=== PATIENT | female | born 1935 | race Caucasian/White ===

== ENCOUNTER 2018-05-05 10:04 | Emergency (ER) | payer MEDICARE, OTHER ==
[2018-05-05 11:35] VITALS: BP 167/67
--- NOTE | 2018-05-05 12:38 | UC ---
Respiratory Complaint HPI - HPI Summary HPI Summary: 4 DAYS OF PRODUCTIVE COUGH, NASAL CONGESTION, HOARSENESS, SINUS PRESSURE AND FATIGUE. NO FEVER. IS HERE VISITING FROM [place]. - History of Current Complaint Chief Complaint: UCGeneralIllness Stated Complaint: SINUS COMPLAINT,COUGH Time Seen by Provider: 05/05/18 11:34 Hx Obtained From: Patient Onset/Duration: Gradual Onset, Lasting Days, Still Present Timing: Constant Severity Initially: Moderate Severity Currently: Moderate Pain Intensity: 0 Pain Scale Used: 0-10 Numeric Character: Cough: Productive Associated Signs And Symptoms: Positive: URI, Nasal Congestion, Hoarseness - Allergies/Home Medications Allergies/Adverse Reactions: Allergies Allergy/AdvReac Type Severity Reaction Status Date / Time amlodipine Allergy See Comment Verified 05/05/18 11:14 SSRI &SSNI Allergy Intermediate See Comment Uncoded 10/18/15 19:08 Home Medications: Home Medications traZODone TAB* [Desyrel TAB*] 75 mg PO BEDTIME 05/05/18 [History Confirmed 05/05] PMH/Surg Hx/FS Hx/Imm Hx - Additional Past Medical History Additional PMH: ARTHRITIS Cardiovascular History: Hypertension Respiratory History: Asthma Cancer History: Breast Cancer - Surgical History Surgical History: Yes Surgery Procedure, Year, and Place: Tonsillectomy, Left underarm lymph node dissection, D&C - Family History Known Family History: Positive: Hypertension - Social History Alcohol Use: Occasionally Substance Use Type: None Smoking Status (MU): Never Smoked Tobacco - Immunization History Most Recent Tetanus Shot: UNK Review of Systems Constitutional: Negative ENT: Sore Throat, Nasal Discharge Respiratory: Cough Cardiovascular: Negative Gastrointestinal: Negative All Other Systems Reviewed And Are Negative: Yes Physical Exam Triage Information Reviewed: Yes Appearance: Well-Appearing, No Pain Distress, Well-Nourished Vital Signs: Initial Vital Signs Temp 98.2 F 05/05/18 11:31 Pulse 68 05/05/18 11:31 Resp 18 05/05/18 11:31 BP 167/67 05/05/18 11:31 Pulse Ox 100 05/05/18 11:31 Vital Signs Reviewed: Yes Eyes: Positive: Conjunctiva Clear ENT: Positive: Hearing grossly normal, Pharynx normal, TMs normal, Hoarse voice Neck: Positive: Supple, Nontender, No Lymphadenopathy Respiratory Exam: Normal Cardiovascular Exam: Normal Abdomen Description: Positive: Soft Musculoskeletal: Positive: No Edema Neurological: Positive: Alert Psychological: Positive: Age Appropriate Behavior Skin: Negative: rashes UC Diagnostic Evaluation - Laboratory O2 Sat by Pulse Oximetry: 100 Respiratory Course/Dx - Differential Dx/Diagnosis Provider Diagnoses: ACUTE URI Discharge - Sign-Out/Discharge Documenting (check all that apply): Discharge/Admit/Transfer - Discharge Plan Condition: Stable Disposition: HOME Prescriptions: Azithromycin 500 mg PO DAILY #5 tab Patient Education Materials: Upper Respiratory Infection (ED) Referrals: No Primary Care Phys,NOPCP [Primary Care Provider] - Additional Instructions: YOUR SYMPTOMS MAY BE VIRALLY MEDIATED BUT GIVEN THE FACT THAT YOU ARE TRAVELLING WE WILL COVER YOU WITH ANTIBIOTICS. IF YOU START THE MEDICINE BE SURE TO TAKE IT FOR THE FULL COURSE. REST, HYDRATE, OTC MEDS NEEDED. SEEK FOLLOW-UP WITH YOUR PCP IN [place] IF YOU ARE NOT IMPROVING OVER THE NEXT 1-2 WEEKS. I AM HERE THIS FRIDAY MORNING AND BOTH FRIDAY AND FRIDAY EVENING IF YOU HAVE ANY QUESTIONS OR CONCERNS. - Billing Disposition and Condition Condition: STABLE Disposition: Home
== END 2018-05-05 12:40 | disposition home or self-care (01) ==
LOC: UCEAST 10:04
DX: J06.9 Acute upper respiratory infection, unspecified (principal); M19.90 Unspecified osteoarthritis, unspecified site; I10 Essential (primary) hypertension; J45.909 Unspecified asthma, uncomplicated; Z85.3 Personal history of malignant neoplasm of breast; Z88.8 Allergy status to other drugs, medicaments and biological substances; Z82.49 Family history of ischemic heart disease and other diseases of the circulatory system
CPT/HCPCS: 99212; G0463